=== PATIENT | male | born 2000 | race Two or more races ===

== ENCOUNTER 2022-11-29 07:11 | Emergency (ER) | payer OTHER ==
[~2022-11-29] VITALS: Ht 180.3 cm; Wt 75.0 kg
[2022-11-29 10:47] VITALS: BP 147/92
== END 2022-11-29 11:06 | disposition home or self-care (01) ==
LOC: M ED 07:11
DX: Z11.52 Encounter for screening for COVID-19 (principal); R05.9 Cough, unspecified